=== PATIENT | female | born 2000 | race African-American/Black ===

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

== ENCOUNTER 2023-02-08 19:08 | Emergency (ER) | payer MEDICAID, OTHER ==
[~2023-02-08] VITALS: Ht 165.1 cm; Wt 59.0 kg
[2023-02-08 20:56] VITALS: BP 105/62
== END 2023-02-08 21:59 | disposition left against medical advice (07) ==
LOC: ER 19:08
DX: Z53.21 Procedure and treatment not carried out due to patient leaving prior to being seen by health care provider (principal)
CPT/HCPCS: 99281